=== PATIENT | male | born 1945 | race Caucasian/White ===

== ENCOUNTER 2017-07-24 07:57 | Day surgery (SDC) | payer OTHER ==
[2017-07-24] MEDS ORDERED: BUPIVACAINE 0.25% 30 ML SDV ONE (08:19)
[2017-07-24] MEDS ORDERED: CLINDAMYCIN 900 MG/DEXTROSE 50 ML IV ONE (08:22)
[2017-07-24] MEDS ORDERED: LR 1,000 ML IV ONE (08:23)
[2017-07-24] MEDS ORDERED: LIDOCAINE 1% 2 ML INJ ID PRN (08:23)
--- NOTE | 2017-07-24 09:23 | PDHPUP ---
History & Physical Update H&P update statement: This history and physical update is based on an assessment of the patient which was completed after admission or registration (within 24 hours), but prior to the surgery/procedure. H&P update: H&P reviewed & patient examined, no change in patient's condition since H&P completed
--- NOTE | 2017-07-24 09:52 | PDANEPAE ---
ANE Past Medical History - Cardiovascular History Hx Hypertension: Yes Hx Arrhythmias: No Hx Chest Pain: No Hx Coronary Artery / Peripheral Vascular Disease: No Hx CHF / Valvular Disease: No Hx Palpitations: No Cardiovascular History Comment: LVH - Pulmonary History Hx COPD: No Hx Asthma/Reactive Airway Disease: No Hx Recent Upper Respiratory Infection: No Hx Oxygen in Use at Home: No Hx Sleep Apnea: Yes Sleep Apnea Screening Result - Last Documented: Positive Pulmonary History Comment: NICA USES C-PAP INSTRUCTED TO BRING DOS - Neurologic History Hx Cerebrovascular Accident: No Hx Seizures: No Hx Dementia: No - Endocrine History Hx Diabetes: No Endocrine History Comment: PRE DIABETIC MANAGES WITH DIET - Renal History Hx Renal Disorders: No - Liver History Hx Hepatic Disorders: No - Neurological & Psychiatric Hx Hx Neurological and Psychiatric Disorders: No - Cancer History Hx Cancer: No - Congenital Disorder History Hx Congenital Disorders: No - GI History Hx Gastrointestinal Disorders: No - Other Health History Other Health History: RESTLESS LEG - Chronic Pain History Chronic Pain: Yes (BIPIN ING HERNIA) - Surgical History Prior Surgeries: COLONOSCOPY 2014. RT IN HERNIA ANE Review of Systems Review of Systems: - Exercise capacity METS (RN): 5 METS ANE Patient History - Allergies Allergies/Adverse Reactions: Penicillins Allergy (Verified 07/13/17 10:31) CHILDHOOD UNKNOWN ISSUE - Home Medications Home Medications: Aspirin EC 07/13/17 [Last Taken 07/23/17] Atorvastatin Calcium HS 07/13/17 [Last Taken 07/23/17] Gabapentin HS 07/13/17 [Last Taken 07/23/17] Ramipril HS 07/13/17 [Last Taken 07/23/17] - NPO status NPO Since - Liquids (Date): 07/23/17 NPO Since - Liquids (Time): 06:30 NPO Since - Solids (Date): 07/23/17 NPO Since - Solids (Time): 22:30 - Smoking Hx Smoking Status: Never smoked ANE Labs/Vital Signs - Vital Signs Blood Pressure: 141/86 Heart Rate: 48 Respiratory Rate: 18 O2 Sat (%): 96 Height: 173.99 cm Weight: 78.471 kg ANE Physical Exam - Airway Neck exam: FROM Mallampati Score: Class 2 Mouth exam: normal dental/mouth exam - Pulmonary Pulmonary: no respiratory distress - Cardiovascular Cardiovascular: regular rate and rhythym - ASA Status ASA Status: II
[2017-07-24] MEDS ORDERED: fentaNYL 250 MCG/5 ML INJ ONE (09:58)
[2017-07-24] MEDS ORDERED: PROPOFOL 200 MG/20 ML VIAL ONE ×2 (09:58→11:53)
[2017-07-24] MEDS ORDERED: LIDOCAINE 2% 5 ML SDV ONE (09:59)
[2017-07-24] MEDS ORDERED: ROCURONIUM 100 MG/10 ML VIAL ONE (09:59)
[2017-07-24] MEDS ORDERED: ONDANSETRON 4 MG/2 ML VIAL ONE (09:59)
[2017-07-24] MEDS ORDERED: DEXAMETHASONE 4 MG/ML VIAL ONE (09:59)
[2017-07-24] MEDS ORDERED: SUGAMMADEX SODIUM 200 MG/2 ML VIAL IVP ONE (12:16)
[2017-07-24] MEDS ORDERED: KETOROLAC 30 MG/1 ML SDV ONE (12:27)
--- NOTE | 2017-07-24 12:37 | POSTOPPROG ---
Post Op Note Date of Operation: 07/24/17 Surgeon: Trae Rios Curriculum Director: ORA Hutchison Anesthesiologist: Nishi Anesthesia: GET(General Endotracheal) Pre-op Diagnosis: recurrent right, left inguinal hernias Post-op Diagnosis: same Procedure: Robotic assisted bilateral inguinal hernia repair with mesh Findings: large recurrent right, large left. Both direct Inf/Abcess present in the surg proc area at time of surgery?: No EBL: Minimal
[2017-07-24] MEDS ORDERED: PROMETHAZINE HCL 25 MG/ML INJ IVP PRN (12:42)
[2017-07-24] MEDS ORDERED: fentaNYL 100 MCG/2 ML INJ IVP PRN (12:42)
[2017-07-24] MEDS ORDERED: NALOXONE HCL 0.4 MG/ML INJ IVP PRN (12:42)
[2017-07-24] MEDS ORDERED: LABETALOL HCL 5 MG/ML 20 ML MDV IVP PRN (12:42)
[2017-07-24] MEDS ORDERED: LR 500 ML IV PRN (12:42)
--- NOTE | 2017-07-24 12:43 | POSTANESTH ---
Post Anesthetic Evaluation Cardiovascular Status: Normal, Stable Respiratory Status: Normal, Stable Level of Consciousness/Mental Status: Can Participate in Eval Pain Control: Adequate, Prn Tx Ordered Nausea/Vomiting Control: Adequate, Prn Tx Ordered Complications Possibly Related to Anesthesia: None Noted
[2017-07-24] MEDS ORDERED: PROMETHAZINE HCL 25 MG/ML INJ ONE ×2 (13:05→15:32)
[2017-07-24 13:29] VITALS: TEMP 98.1
[2017-07-24] MEDS ORDERED: fentaNYL 100 MCG/2 ML INJ ONE (13:34)
[2017-07-24 13:48] VITALS: PULSE 69
[2017-07-24 13:50] VITALS: RESP 13; O2SAT 96
[2017-07-24] MEDS ORDERED: oxyCODONE IR 5 MG TAB PO ONE (14:05)
--- NOTE | 2017-07-24 14:54 | GOP ---
[f rep st] OPERATIVE REPORT DATE OF OPERATION: 07/24/2017 SURGEON: Trae Rios MD DISABILITY COUNSELOR: Ira Rodríguez CFA. ANESTHESIA: General endotracheal. ANESTHESIOLOGIST: Provided by Leonard Almodovar MD. PREOPERATIVE DIAGNOSIS: 1. Recurrent right inguinal hernia. 2. Left inguinal hernia. POSTOPERATIVE DIAGNOSIS: 1. Recurrent right inguinal hernia. 2. Pantaloon left inguinal hernia. PROCEDURE PERFORMED: 1. Robotic-assisted recurrent right inguinal hernia repair with mesh 2. Robotic-assisted left inguinal hernia repair with mesh. FINDINGS: Large recurrent indirect defect on the right, successfully reduced. Left side had both indirect and direct inguinal hernia, successfully reduced. Both sides repaired with Bard 3D Light site-specific large-sized mesh. SPECIMENS: None. ESTIMATED BLOOD LOSS: 10 cc. DESCRIPTION OF PROCEDURE: The patient was greeted in the preoperative suite. Once again, risks, benefits, and alternatives were discussed. The consent was signed. He was then brought back to the operative suite, placed on the OR table in supine position. After all anesthesia machines including SCDs were on and functioning, a World Health Organization time-out was performed. After successful induction of general anesthesia, the patient's abdomen was widely prepped and draped in typical sterile fashion. I entered the abdomen via a supraumbilical cutdown, through which the Veress needle was passed. I achieved pneumoperitoneum to 15 mmHg CO2, which was well tolerated by the patient. Through this site, I inserted an 8 mm robotic trocar, through which I placed the robotic camera in. Two additional 8 mm trocars were placed, 1 in the right and 1 in the left upper quadrant, both under direct visualization. The patient was then placed in Trendelenburg position and the robot successfully docked. I first turned my attention toward the right side, where omental fat had gone into the recurrent hernia defect, which appeared to be direct in nature. I began the procedure by making my peritoneal flap, starting laterally and moving medially over Quentin's ligament. I then dissected out the preperitoneal space. Once successfully done doing this, I successfully reduced both the omental fat and the peritoneum from the defect. Some of it was densely adherent to the recurrent hernia, that I had to amputate a portion of the hernia as it was stuck to what appeared to be skin on the underlying surface. After successful reduction of this, I created my cavity and successfully brought my mesh into place. I tacked it to Quentin ligament as well as on either side of the inferior epigastric vessels. I then closed the peritoneal defect with a running 2-0 V-Loc suture. I turned my attention toward the left side, where he had a large pantaloon hernia. In the same fashion, created my preperitoneal plane successfully and reduced the hernia sac, including all of its contents back to the visceral sac. After successful reduction, I brought in my site- specific Bard 3D Light mesh, successfully tacked it to Quentin ligament, as well as on either side of the inferior epigastric vessels, and in the same fashion closed the peritoneal defect. I then inspected both sites, which were hemostatic and intact. The pneumoperitoneum was then evacuated. The skin closed with 4-0 Monocryl, over which Dermabond was placed. The patient was then extubated in the operative suite and taken to the PACU in satisfactory condition. DRAINS: None. COUNTS: All counts were reported as correct x2. /[id number]/MODL MTDD
[2017-07-24 16:02] VITALS: BP 103/62
== END 2017-07-24 16:58 | disposition home or self-care (01) ==
LOC: FSGY 07:57
PROVIDERS: ATTEND Surgery
PROC: 8E0W8CZ Robotic Assisted Procedure of Trunk Region, Via Natural or Artificial Opening Endoscopic (ICD-10-PCS; principal; 2017-07-24 09:45)
PROC: 0YUA4JZ Supplement Bilateral Inguinal Region with Synthetic Substitute, Percutaneous Endoscopic Approach (ICD-10-PCS; principal; 2017-07-24 09:45)
DX: K40.91 Unilateral inguinal hernia, without obstruction or gangrene, recurrent (principal); K40.90 Unilateral inguinal hernia, without obstruction or gangrene, not specified as recurrent; E11.9 Type 2 diabetes mellitus without complications; E78.5 Hyperlipidemia, unspecified; I10 Essential (primary) hypertension; G47.33 Obstructive sleep apnea (adult) (pediatric); Z79.82 Long term (current) use of aspirin; Z88.0 Allergy status to penicillin
CPT/HCPCS: C1781; J0171; J1100; J1200; J1885; J2405; J2550; J2704; J3010

== ENCOUNTER 2017-07-27 23:18 | Emergency (ER) | payer OTHER ==
[2017-07-27 23:35] VITALS: RESP 16
--- NOTE | 2017-07-28 | EDPHY ---
H & P Stated Complaint: Inguinal hernia sx 3 days ago, abd pain, seen at [facility] today and left AMA. Time Seen by Provider: 07/27/17 23:23 HPI/ROS: Chief Complaint: Abdominal pain, constipation HPI: 71-year-old male who is 2 days status post bilateral inguinal hernia repairs by Dr. Rios. Patient has had constipation. He presented to [facility] with complaints of abdominal pain. There he had a Fleet's enema and passed a large bowel movement with improvement in symptoms. He also had a CT scan of the abdomen and pelvis which showed fecal impaction and report of bilateral bowel containing inguinal hernias. They had recommended admission to the surgical service there but the patient elected to leave and come here where he can be seen by his surgeon. Patient states that he is feeling much better. No nausea or vomiting. No fevers or chills. ROS: 10 point Review of Systems is negative except as noted in the HPI. Family History: non-contributory Physical Exam: Gen: Awake, Alert, No Distress HEENT: Nose: no rhinorrhea Eyes: PERRLA, EOMI Mouth: Moist mucosa Neck: Supple, no JVD Chest: nontender, lungs clear to auscultation Heart: S1, S2 normal, no murmur Abd: Soft, mild diffuse tenderness, no guarding Back: no CVA tenderness, no midline tenderness Ext: no edema, non-tender Skin: no rash Neuro: CN II-XII intact, Sensation grossly intact, Strength 5/5 in bilateral upper and lower extremities - Personal History Current Tetanus/Diphtheria Vaccine: Unsure Current Tetanus Diphtheria and Acellular Pertussis (TDAP): Unsure - Medical/Surgical History Hx Asthma: No Hx Chronic Respiratory Disease: No Hx Diabetes: No Hx Cardiac Disease: No Hx Renal Disease: No Hx Cirrhosis: No Hx Alcoholism: No Hx HIV/AIDS: No Hx Splenectomy or Spleen Trauma: No Other PMH: ingunal hernia - Social History Smoking Status: Never smoked Constitutional: Initial Vital Signs Temperature (C) 37.3 C 07/27/17 23:28 Heart Rate 85 07/27/17 23:28 Respiratory Rate 16 07/27/17 23:28 Blood Pressure 142/77 H 07/27/17 23:28 O2 Sat (%) 94 07/27/17 23:28 O2 Delivery Mode Room Air Allergies/Adverse Reactions: Penicillins Allergy (Verified 07/13/17 10:31) CHILDHOOD UNKNOWN ISSUE Home Medications: Medication Instructions Recorded Aspirin EC 07/13/17 Atorvastatin Calcium HS 07/13/17 Gabapentin HS 07/13/17 Ramipril HS 07/13/17 Medical Decision Making ED Course/Re-evaluation: 71-year-old male status post hernia repair with constipation abdominal pain. I have reviewed the CT report. CT scans been uploaded to the PACS system here. I have discussed with Dr. Rios who is on-call and will evaluate the patient in the emergency department. Patient has been seen by Dr. Rios. He is discussed with radiologist. Findings on CT consistent with postoperative changes. There are no continues loops of bowel. Patient is feeling improved. Plan is to discharge the patient per home at the patient's request. He will follow up with Dr. Rios on Sunday. Departure - Departure Disposition: Home, Routine, Self-Care Clinical Impression: Constipation Condition: Fair Instructions: Constipation (ED) Additional Instructions: Take MiraLax twice a day per Dr. Rios's plan. Call Dr. Rios on Sunday for recheck. Return to the emergency depart for increasing pain, worsening constipation, nausea vomiting, or any other concerns. Referrals: Trae Rios MD [Primary Care Provider] - As per Instructions
[2017-07-28 00:50] VITALS: BP 157/80; PULSE 77; TEMP 100; O2SAT 93
--- NOTE | 2017-07-28 02:11 | GCON ---
[f rep st] CONSULTATION DATE OF CONSULTATION: 07/28/2017 CHIEF COMPLAINT: Rectal pain. HISTORY OF PRESENT ILLNESS: This is a 71-year-old male whom I performed bilateral robotic inguinal h ernia repair on this past Sunday. Other than having fairly large hernias, the patient had an uneven tful operation and was subsequently discharged home after an outpatient procedure. He was doing well , stating that the pain was very well controlled, actually never took any oral narcotics, taking ibup rofen alone for pain. His called me this morning stating that he was having troubles having a b owel movement. At that time, I recommended milk of magnesia or MiraLAX, which was followed. The rafa aguilar's subsequently called back this afternoon stating that the pain was even worse to the point where the patient was doubled over and he subsequently presented to an outside hospital for evaluati on. At the outside hospital, he had manual disimpaction including an enema, which gave him significa nt, almost immediate relief. For reasons unclear, they performed a CT scan of his abdomen and pelvis and the read at the outside hospital showed that he had recurrent bowel-containing hernias, at which point in time he contacted me. His clinical picture, however, after the enema was inconsistent. Th e patient stated that he felt well, his abdomen was soft and he wanted to go home, but given the read s on his CT scan and worry for possible bowel incarceration, I asked that he be discharged from [facility] and actually come here for my evaluation. On my evaluation here, his abdomen is soft, nondistended, and appropriately tender. He does have some bruising at the base of his penis and int o his scrotum, but his groins are flat. There is a little bit of postoperative hematoma, seroma appr eciated on exam, but the remainder of his exam is reassuring. PAST MEDICAL HISTORY: Bilateral inguinal hernias, prediabetic. PAST SURGICAL HISTORY: Three days out from a robotic bilateral inguinal hernia repair with mesh. FAMILY HISTORY: Noncontributory. REVIEW OF SYSTEMS: 10-point review performed. PHYSICAL EXAM: VITAL SIGNS: Temperature 37.3, blood pressure 140/70, heart rate 85, and he is 94% o n room air. CONSTITUTIONAL: He is in no distress. He appears comfortable. EYES: His pupils are e qual, round, and reactive to light and accommodation. HENT: Normal dentition. Normal hearing. NEC K: Soft, supple. No masses. CHEST: Clear. ABDOMEN: Soft. His incision sites are covered with D ermabond and are healing appropriately. His groins are appropriately tender. There is some ecchymos es at the base of his penis going into his groin. There appears to be some postoperative fluid colle ctions on both groins on examination, but nothing that would be consistent with recurrent herniation. MUSCULOSKELETAL: Full range of motion. No joint tenderness. NEUROLOGIC: He is alert and oriente d x3. PSYCH: He is interacting appropriately. Outside CT scan, the images of which were personally reviewed, show fluid within the inguinal canal. It is likely postoperative seroma versus hematoma. I see no bowel within the inguinal canals. ASSESSMENT AND PLAN: A 71-year-old male status post robotic hernia repair, transferred here for exam ination and concern for recurrence of hernias. Actually had the scans uploaded to our system and rev iewed them with our on-call radiologist, who concurs with my interpretation of the exam. There is ai r and fluid within both inguinal canals, Hounsfield units consistent with postoperative hematoma. Th e remainder of the bowel within the patient's abdomen is decompressed and not obstructed, and I see n o contiguous bowel loops within the abdomen within the inguinal canal, so I am pretty sure that the r ead was misinterpreted at the outside hospital. This is corroborated by the patient's physical exam findings. I see no signs of recurrent inguinal hernias on either side. His abdomen is soft. He fee ls well after having his bowel movement. I feel that it is safe to discharge the patient home. I asked him to continue aggressive bowel regim en for the next couple of days until he is having fairly regular bowel movements. I also asked him t o follow up with me Sunday regardless of how he is doing, just to make sure that he has not had any r ecurrent issues. He and his were both in agreement with this. I discussed these findings with the emergency department attending, Dr. Holman. /[id number]/MODL
== END 2017-07-28 00:50 | disposition home or self-care (01) ==
DX: K59.00 Constipation, unspecified (principal)